=== PATIENT | male | born 1960 | race Caucasian/White ===

== ENCOUNTER 2017-10-18 12:45 | Outpatient (CLI) | payer BC | END 2017-10-18 12:46 | disposition home or self-care (01) | LOC: BICRAD 12:45 | PROVIDERS: ATTEND Internal Medicine Rheumatology | DX: M19.90 Unspecified osteoarthritis, unspecified site (principal); M18.12 Unilateral primary osteoarthritis of first carpometacarpal joint, left hand; S63.213A Subluxation of metacarpophalangeal joint of left middle finger, initial encounter ==

== ENCOUNTER 2018-01-12 09:21 | Emergency (ER) | payer BC ==
[2018-01-12 10:21] LABS: #Basophils 0.1 thou/uL (0.0-0.2); #Lymphocytes 1.4 thou/uL (1.20-3.40); #Monocytes 0.8 thou/uL (0.11-0.59); %Basophils 0.8 % (0.0-1.0); %Eosinophils 0.2 % (0.0-10.0); %Lymphocytes 16.6 % (21.0-51.0); %Monocytes 9.4 % (0.0-10.0); %Neutrophils 73.1 % (42.0-75.0); Mean Corpuscular HGB CONC 33.3 g/dL (32.0-36.0); Mean Corpuscular Hemoglobin 31.1 pg (27.0-31.0); Mean Corpuscular Volume 93.6 fL (78.0-98.0); Mean Platelet Volume 8.2 fL (7.4-10.4); Platelet Count 181 thou/uL (130-400); RBC Distribution Width 12.3 % (11.5-14.5); Red Blood Cell (RBC) Count 4.83 mill/uL (4.70-6.10); White Blood Cell (WBC) Count 8.2 thou/uL (4.8-10.8)
[2018-01-12 10:40] LABS: ALT (SGPT) 32 U/L (8-55); AST (SGOT) 30 U/L (5-34); Albumin 4.3 g/dL (3.5-5.0); Alkaline Phosphatase 61 U/L (40-150); Anion Gap 17 mmol/L (10-20); BUN (Urea Nitrogen) 9 mg/dL (8.4-25.7); Bilirubin, Total 0.5 mg/dL (0.2-1.2); Calc. Creatinine Clearance 0 mL/min (70-130); Calcium 9.2 mg/dL (7.8-10.44); Carbon Dioxide 19 mmol/L (22-29); Chloride 106 mmol/L (98-107); Estimated GFR-MDRD 65; Globulin 3.7 g/dL (2.4-3.5); Glucose 108 mg/dL (70-105); Potassium 4.4 mmol/L (3.5-5.1); Sodium 138 mmol/L (136-145)
[2018-01-12 10:41] LABS: CKMB 0.3 ng/mL (0-6.6); Troponin I Less than 0.010 ng/mL (< 0.028)
[2018-01-12] MEDS ORDERED: Ketorolac Tromethamine 30 MG/ML VIAL ONE (11:31)
--- NOTE | 2018-01-12 12:22 | RAD ---
PA AND LATERAL VIEWS CHEST: Date: 01/12/18 HISTORY: Chest pain. Cough. Fever. Shortness of breath. FINDINGS: The heart size is normal. The lungs are expanded without focal areas of consolidation, pneumothoraces , or pleural effusions. No acute osseous abnormalities are seen. IMPRESSION: No radiographic evidence of acute cardiopulmonary process. POS: [facility]
== END 2018-01-12 11:41 | disposition home or self-care (01) ==
LOC: SCSER 09:21
DX: J06.9 Acute upper respiratory infection, unspecified (principal); M19.90 Unspecified osteoarthritis, unspecified site; F17.220 Nicotine dependence, chewing tobacco, uncomplicated
CPT/HCPCS: 71046; 80053; 82553; 83605; 84484; 85025; 93005; 96361; 96374; J1885; J7620

== ENCOUNTER 2021-10-03 08:22 | Outpatient (CLI) | payer BC | END 2021-10-03 08:23 | disposition home or self-care (01) | LOC: TBSIIMAG 08:22 | PROVIDERS: ATTEND Anesthesiology Pain Medicine | DX: M48.062 Spinal stenosis, lumbar region with neurogenic claudication (principal); M47.816 Spondylosis without myelopathy or radiculopathy, lumbar region; M48.07 Spinal stenosis, lumbosacral region; N28.9 Disorder of kidney and ureter, unspecified | CPT/HCPCS: 72100; 72148 ==

== ENCOUNTER 2023-03-20 09:29 | Outpatient (CLI) | payer BC ==
[2023-03-20] MEDS ORDERED: Gadobenate Dimeglumine 2 ML, Sodium Chloride 0.9% 250 ML 10 ML, Iopamidol 8 ML, Lidocai... FS SCH (10:00)
[2023-03-20] MEDS ORDERED: Sodium Bicarbonate 0.5 MEQ/ML SDV 10 ML ONE (10:16)
== END 2023-03-20 09:30 | disposition home or self-care (01) ==
LOC: RAD 09:29
PROVIDERS: ATTEND Orthopaedic Surgery
DX: M24.9 Joint derangement, unspecified (principal); S43.431A Superior glenoid labrum lesion of right shoulder, initial encounter
CPT/HCPCS: 23350; A9577; J0171; J7050; Q9967

== ENCOUNTER 2023-05-10 07:29 | Day surgery (SDC) | payer BC ==
[2023-05-07 16:07] VITALS: BMI 29.6
[2023-05-10] MEDS ORDERED: fentaNYL 50 mcg/mL 1 mL Vial ONE ×2 (09:21→09:54)
[2023-05-10] MEDS ORDERED: PROPOFOL 20 ML ONE (09:21)
[2023-05-10] MEDS ORDERED: Sodium Chloride 0.9% 0 ML ONE (09:22)
[2023-05-10] MEDS ORDERED: Lidocaine 1% PF 5 ML VIAL ONE (09:22)
[2023-05-10] MEDS ORDERED: Midazolam HCl 2 mg/2 ml Vial ONE (09:55)
[2023-05-10] MEDS ORDERED: Lidocaine 1% MPF 2 ML VIAL ONE (09:55)
[2023-05-10] MEDS ORDERED: EPINEPHrine 1 MG/ML VIAL ONE (09:57)
[2023-05-10] MEDS ORDERED: Bupivacaine 0.25% HCL 30 ML VIAL ONE (09:57)
[2023-05-10] MEDS ORDERED: Sodium Chloride 0.9% 100 ML ONE (10:12)
[2023-05-10] MEDS ORDERED: CEFAZOLIN 2 GM VIAL ONE (10:12)
[2023-05-10] MEDS ORDERED: oxyCODONE 5 MG TAB PO PRN (10:29)
[2023-05-10] MEDS ORDERED: Ondansetron PF 4 MG/2 ML Vial IVP PRN (10:30)
[2023-05-10] MEDS ORDERED: Promethazine HCl 25 MG/ML VIAL IM PRN (10:30)
[2023-05-10] MEDS ORDERED: Ropivacaine 0.2% 550 ML 550 ML NERVE BLCK SCH (10:30)
[2023-05-10] MEDS ORDERED: Zolpidem Tartrate 5 MG TAB PO PRN (10:30)
[2023-05-10] MEDS ORDERED: Rocuronium Bromide 10 MG/ML (10ML VIAL) ONE (10:31)
[2023-05-10] MEDS ORDERED: Ondansetron PF 4 MG/2 ML Vial ONE (11:41)
[2023-05-10] MEDS ORDERED: Dexamethasone 4 mg/ml Vial ONE (11:41)
[2023-05-10] MEDS ORDERED: Ketorolac Tromethamine 30 MG (1 mL) VIAL ONE (11:41)
[2023-05-10] MEDS ORDERED: SUGAMMADEX SODIUM 200 MG/2 ML VIAL ONE (11:50)
[2023-05-10] MEDS ORDERED: Acetaminophen 500 MG TAB PO SCH (12:00)
[2023-05-10] MEDS ORDERED: Ketorolac Tromethamine 30 MG (1 mL) VIAL IVP SCH (12:00)
[2023-05-10] MEDS ORDERED: hydrALAZINE 20 MG/ML VIAL ONE (12:06)
== END 2023-05-10 13:21 | disposition home or self-care (01) ==
LOC: SDC 07:29
PROVIDERS: ATTEND Orthopaedic Surgery
PROC: 0LS30ZZ Reposition Right Upper Arm Tendon, Open Approach (ICD-10-PCS; principal; 2023-05-10)
PROC: 0RBJ4ZZ Excision of Right Shoulder Joint, Percutaneous Endoscopic Approach (ICD-10-PCS; principal; 2023-05-10)
DX: S43.431A Superior glenoid labrum lesion of right shoulder, initial encounter (principal); M24.011 Loose body in right shoulder; M67.813 Other specified disorders of tendon, right shoulder; I10 Essential (primary) hypertension; E78.5 Hyperlipidemia, unspecified; F17.290 Nicotine dependence, other tobacco product, uncomplicated; Z79.82 Long term (current) use of aspirin; Z79.899 Other long term (current) drug therapy
CPT/HCPCS: A4306; C1713; J0171; J0360; J0665; J1100; J1885; J2250; J2405; J2704; J2795; J3010; J3490